=== PATIENT | female | born 1965 | race African-American/Black ===

== ENCOUNTER 2018-05-28 11:48 | Day surgery (SDC) | payer OTHER ==
[2018-05-27 16:19] VITALS: BMI 41.3
[2018-05-28] MEDS ORDERED: LIDOCAINE 1%/EPI 1:100000 (20 ML MULTI DOSE VIAL) ONE (13:40)
[2018-05-28] MEDS ORDERED: BUPIVACAINE HCL/PF 0.5% (5MG/ML) 10 ML VIAL ONE (13:40)
[2018-05-28] MEDS ORDERED: VASOPRESSIN 20 UNITS/ML VIAL IV ONE (13:41)
[2018-05-28] MEDS ORDERED: MIDAZOLAM HCL 2 MG/2 ML SINGLE DOSE VIAL ONE ×2 (13:51)
[2018-05-28] MEDS ORDERED: BUPIVACAINE 0.75% IN DEXTROSE/PF 2ML AMPULE NR ONE (13:51)
[2018-05-28] MEDS ORDERED: LIDOCAINE HCL/PF 2% SDV 5ML VIAL ONE (13:51)
[2018-05-28] MEDS ORDERED: PROPOFOL 20 ML ONE (14:25)
[2018-05-28] MEDS ORDERED: SUCCINYLCHOLINE CHLORIDE 200 MG/10 ML VIAL ONE (14:25)
[2018-05-28] MEDS ORDERED: ceFAZolin SODIUM 1 GM VIAL IVPB ONE ×2 (14:30)
[2018-05-28] MEDS ORDERED: ceFAZolin SODIUM 1 GM VIAL ONE (14:34)
[2018-05-28] MEDS ORDERED: DEXAMETHASONE SOD PHOSPHATE 4 MG/1 ML VIAL ONE (14:50)
[2018-05-28] MEDS ORDERED: BUPIVACAINE HCL/PF (5 MG/ML) 30 ML VIAL IJ ONE (15:00)
[2018-05-28] MEDS ORDERED: LIDOCAINE 1%/EPI 1:100000 (20 ML MULTI DOSE VIAL) IJ ONE (15:30)
[2018-05-28] MEDS ORDERED: ACETAMINOPHEN 325 MG TABLET (FP) PO PRN (15:35)
[2018-05-28] MEDS ORDERED: oxyCODONE HCL 5 MG TABLET PO PRN (15:35)
[2018-05-28] MEDS ORDERED: ONDANSETRON 4 MG/2 ML VIAL IVPUSH PRN (15:35)
[2018-05-28] MEDS ORDERED: LACTATED RINGERS SOLUTION 1,000 ML IV SCH (15:45)
--- NOTE | 2018-05-28 15:56 | SURG ---
Surgery Engineering Mathematician Note Engineering Mathematician: Robin Paniagua PA-C (Suzy) Date of Service: 05/28/18 Diagnosis: Stress Incontinence, rectocele Procedure: Suburethral Sling Procedure, Repair of rectocele I was present for the entirety of the operative procedure. For further detail, please refer to operative report. Visit type - Case Type Case Type: Scheduled - Emergency Emergency Visit: No - New patient This patient is new to me today: Yes Date on this admission: 05/28/18 - Critical Care Critical Care patient: No
--- NOTE | 2018-05-28 15:56 | OP ---
Operative Note - Note: Operative Date: 05/28/18 Pre-Operative Diagnosis: Stress Incontinence, rectocele Operation: Suburethral Sling Procedure, Repair of rectocele Findings: as dictated Implants: as dictated Post-Operative Diagnosis: Same as Pre-op Surgeon: Dayne Sharp Operations Liaison: Robin Paniagua Anesthesiologist/WOODS RIDER: Chio Graham Anesthesia: General, Local (10ml .5% Bupivacaine injected at start of case, 10ml Lidocaine with epi injected at end of case) Specimens Removed: none Estimated Blood Loss (mls): 20 (ml) Fluid Volume Replaced (mls): 800 (ml) Operative Report Dictated: Yes
[2018-05-28] MEDS ORDERED: ALBUTEROL SO4 0.083% IH SOL 2.5 MG/3 ML VIAL.NEB. NEB PRN (17:05)
[2018-05-28 18:24] VITALS: TEMP 97.6
[2018-05-28 19:04] VITALS: BP 123/75; PULSE 83
--- NOTE | 2018-05-29 08:28 | OP ---
DATE OF OPERATION: 05/28/2018 PREOPERATIVE DIAGNOSIS: Stress urinary incontinence, cystocele, rectocele. POSTOPERATIVE DIAGNOSIS: Stress urinary incontinence, cystocele, rectocele. PROCEDURE PERFORMED: Sling urethropexy, anterior and posterior colporrhaphy, and cystoscopy. PRIMARY SURGEON: Dayne Sharp MD DESCRIPTION OF PROCEDURE: After adequate anesthesia, patient was prepped and draped in dorsal lithotomy position. Evaluation under anesthesia revealed no pelvic masses palpable. A vertical incision was made with the anterior vaginal wall, perivesical fascia dissected away, plicated anterior surface using 0 Vicryl suture in interrupted fashion. The mid urethral area was dissected up to the space of Retzius. Transvaginal tape and sling were then inserted at the appropriate anatomical location. Cystoscopy was performed to note no foreign bodies in the bladder, and the ureters emanating urine vigorously. Minimal tension was applied to the sling arms. Sling arms were then covered with skin. Skin closed using Dermabond. The anterior vaginal wall closed using 2-0 Vicryl suture in a continuous fashion. The bladder was then drained. A vertical incision was made with the back wall of vagina down to the premeasured area of the skin at the introitus. The vaginal epithelium of this area was excised, and the perirectal fascia was plicated out with single 0 Vicryl suture in interrupted fashion along with building the perineal body. The back wall of the vagina was then closed using 2-0 Vicryl suture in a continuous fashion. Rectal examination was negative for any foreign bodies. The introitus was accommodating the surgeon's 2 fingers easily with no stenosis noted. Jodi [id number]
== END 2018-05-28 19:09 | disposition home or self-care (01) ==
LOC: JASU-SURG 11:48
PROVIDERS: ATTEND Obstetrics & Gynecology Female Pelvic Medicine and Reconstructive Surgery
PROC: 0JQC0ZZ Repair Pelvic Region Subcutaneous Tissue and Fascia, Open Approach (ICD-10-PCS; 2018-05-28)
PROC: 0TJB8ZZ Inspection of Bladder, Via Natural or Artificial Opening Endoscopic (ICD-10-PCS; 2018-05-28)
PROC: 0TSD0ZZ Reposition Urethra, Open Approach (ICD-10-PCS; principal; 2018-05-28 13:00)
PROC: 0JQC0ZZ Repair Pelvic Region Subcutaneous Tissue and Fascia, Open Approach (ICD-10-PCS; 2018-05-28 13:00)
DX: N39.3 Stress incontinence (female) (male) (principal); N81.10 Cystocele, unspecified; N81.6 Rectocele
CPT/HCPCS: 94760